=== PATIENT | female | born 2000 | race Caucasian/White ===

== ENCOUNTER 2021-12-13 00:35 | Emergency (ER) | payer OTHER ==
[2021-12-13] MEDS ORDERED: NORCO 5-325 TA1 EACH PO (01:19)
== END 2021-12-13 01:50 | disposition home or self-care (01) ==
LOC: FER 00:35
DX: S52.501A Unspecified fracture of the lower end of right radius, initial encounter for closed fracture (principal); V00.121A Fall from non-in-line roller-skates, initial encounter; Y93.51 Activity, roller skating (inline) and skateboarding
CPT/HCPCS: 73110